=== PATIENT | female | born 1970 | race African-American/Black ===

== ENCOUNTER 2016-07-05 09:03 | Outpatient (CLI) | payer MEDICAID ==
[~2016-07-05] VITALS: Ht 172.7 cm; Wt 97.6 kg
[2016-07-05] MEDS ORDERED: PRENAT PO (09:27)
[2016-07-05 09:28] VITALS: Ht 172.7 cm; Wt 97.6 kg
[2016-07-05 09:30] VITALS: BP 110/59; PULSE 117
--- NOTE | 2016-07-05 10:08 | RADRPT ---
PROCEDURE: Limited obstetric ultrasound CLINICAL INDICATION: Pain , labor TECHNIQUE: Multiple transverse and longitudinal grayscale images of the pelvis were obtained avila sabdominally and transvaginally.. COMPARISON: same day FINDINGS: The cervix is closed with a length of 3.5 cm. There is a single viable intrauterine gestation. Cardiac activity is present with 152 beats per min dayan. There is a vertex presentation. The placenta is anterior. There is no evidence for an abruption or placenta previa. RPTAT: AA IMPRESSION: Cervix length measures 3.5 cm. .Adalid Batista MD, Date Time Electronically viewed and signed by .Adalid Batista MD, on 07/05/2016 10:07 .S/
[2016-07-05 10:56] LABS: ADD UMIC NO; URINE BILIRUBIN (Dip) NEGATIVE (NEGATIVE); URINE BLOOD (Dip) NEGATIVE (NEGATIVE); URINE COLOR LT. YELLOW (YELLOW); URINE GLUCOSE (Dip) NEGATIVE (NEGATIVE); URINE KETONES (Dip) NEGATIVE (NEGATIVE); URINE LEUKOCYTE ESTERASE (Dip) NEGATIVE (NEGATIVE); URINE NITRITE (Dip) NEGATIVE (NEGATIVE); URINE TOTAL PROTEIN (Dip) NEGATIVE (NEGATIVE); URINE UROBILINOGEN (Dip) 0.2 E.U./dL (0.1-1.0)
[2016-07-05] MEDS ORDERED: TERBUTALINE 1 MG/ML INJ SC ONE (12:00)
--- NOTE | 2016-07-05 12:31 | CONS ---
Date/Time of Note Date/Time of Note DATE: 07/05/16 TIME: 12:27 Assessment/Plan Assessment/Plan Additional Assessment/Plan 45 yh/o at 24w 4d with contractions, no e/o ptl -terbutaline give -will observe, consider nifedipine if contractions not resolved -f/u with OB next week Consultation Date/Type/Reason Admit Date/Time Reason for Consultation Contractions Hx of Present Illness 45 y/o at 24w 4d karan presents with contractions. Patient was seen at [facility] yesterday for the same symptoms. FFN was negative. She received terbutaline with good response. Denies LOF, VB. +FM. Getting PNC with Dr. Cisneros. h/o term x2. Per HPI. Other systems negative. Past Medical History Medical History: no pertinent history Past Surgical History Past Surgical Hx: no surgical history Social History Denies habits. Smoking Status: Never smoker Exam/Review of Systems Vital Signs Vitals Vital Signs Date Time Temp Pulse Resp B/P Pulse Ox O2 Delivery O2 Flow Rate FiO2 07/05/16 09:30 98.1 117 110/59 Exam Gen: NAD HEENT: NCAT CV: RRR Pulm: CTAB Abd: gravid, NT Back: no CVAT Ext: NT FHT: reassuring [facility]: +UCs CL: 3.5cm UA: neg Results Results 24 hrs Laboratory Tests Test 07/05/16 09:35 Urine Color LT. YELLOW Urine Clarity CLEAR Urine pH 6.0 Urine Specific [place] 1.015 Urine Ketones NEGATIVE Urine Nitrite NEGATIVE Urine Bilirubin NEGATIVE Urine Urobilinogen 0.2 E.U./dL Urine Leukocyte Esterase NEGATIVE Urine Hemoglobin NEGATIVE Urine Glucose NEGATIVE Urine Total Protein NEGATIVE [place] July 05, 2016 12:31
[2016-07-05] MEDS ORDERED: NIFEdipine 10 MG CAP ONE (15:06)
[2016-07-05] MEDS ORDERED: NIFEdipine 10 MG CAP PO ONE (15:30)
== END 2016-07-05 16:55 | disposition home or self-care (01) ==
LOC: L-D 09:03 → OBT 09:03
PROVIDERS: ATTEND Obstetrics & Gynecology
DX: O62.9 Abnormality of forces of labor, unspecified (principal); O09.522 Supervision of elderly multigravida, second trimester; Z3A.24 24 weeks gestation of pregnancy
CPT/HCPCS: 76817; 81003; 96372; J3105; Z7500; Z7610; G0463